=== PATIENT | female | born 1975 | race Caucasian/White ===

== ENCOUNTER 2020-03-07 11:39 | Emergency (ER) | payer BC, OTHER ==
[~2020-03-07] VITALS: Ht 162.6 cm; Wt 64.9 kg
[2020-03-07 15:38] VITALS: BP 117/83
== END 2020-03-07 15:34 | disposition home or self-care (01) ==
LOC: ER 11:41
DX: I73.89 Other specified peripheral vascular diseases (principal); Z98.890 Other specified postprocedural states; Z88.2 Allergy status to sulfonamides; Z88.8 Allergy status to other drugs, medicaments and biological substances
CPT/HCPCS: 93971; 99284